=== PATIENT | female | born 1990 | race Hispanic/Latino ===

== ENCOUNTER 2017-12-21 13:00 | Emergency (ER) | payer OTHER ==
[2017-12-21 13:15] VITALS: BMI 27.7
--- NOTE | 2017-12-21 13:49 | OBHP ---
Datetime: 12/21/2017 13:33 IP Adm Impression: Term, intrauterine IP Admit Plan: Observation/Evaluation Admit Comment, IP Provider: 27 yo g1 edc [birth year] presents w/ c/o episode of lightheadedness associated w/ dizziness 3days ago while sitting at computer in work and this morning while cooking pancakes . S he states dizziness today was preceded by blurred va and follwoed by h/a and nausea. rates h/a 5/10 d oes not feel she needs to take a tylenol for it. denies emesis, ruq pain midepig, scotomata, decreas ed fm, ctxs, srom or vag bleeding. ob hx sig for polyhydram- had norml gst but was placd on ada diet this past wk and has not been fe eling well. last us on 12/15 edd 26. us on 12/11 efw 28% pmhx: asthma in childhhood pshx: denies nkda medic: pnv allerg: sulfa- pruritus i: 37.1wk h/a, blurred va p: cbc, msafp, cmp, ua Gestation - Est Wks by US: 37.1 IP Chief Complaint: Other
[2017-12-21 13:56] LABS: BASO % 0.3 % (0.0-2.0); EOS # 0.1 K/uL (0.0-0.7); EOS % 0.7 % (0.0-4.0); HEMOGLOBIN 11.8 g/dL (12.0-16.0); LYMPH % 19.5 % (20.0-40.0); MEAN CELL VOLUME 93.7 fl (81.0-99.0); MEAN CORPUSCULAR HEMOGLOBIN 31.7 pg (27.0-31.0); MEAN CORPUSCULAR HGB CONC 33.8 g/dL (33.0-37.0); MEAN PLATELET VOLUME 9.1 fl (7.2-11.7); MONO # 0.8 K/uL (0.0-0.8); MONO % 7.7 % (0.0-10.0); NEUT # 7.4 K/uL (1.8-7.0); NEUT % 71.8 % (50.0-75.0); NRBC % 0.1 % (0.0-0.0); RBC 3.71 Mil/uL (3.80-5.20); RED CELL DISTRIBUTION WIDTH 12.9 % (11.5-14.5); WHITE BLOOD COUNT 10.3 K/uL (4.8-10.8)
[2017-12-21 14:10] LABS: ALB/GLOB RATIO 1.1 (1.0-2.1); ALBUMIN 3.4 g/dL (3.5-5.0); ALT/SGPT 29 U/L (9-52); AST/SGOT 31 U/L (14-36); BLOOD UREA NITROGEN 6 mg/dl (7-17); CALCIUM 9.6 mg/dL (8.4-10.2); GFR AFRICAN-AMERICAN > 60; GFR NON-AFRICAN AMERICAN > 60
[2017-12-21 18:24] VITALS: BP 106/64; PULSE 70; O2SAT 99
== END 2017-12-21 14:24 | disposition home or self-care (01) ==
LOC: H.EROB2 13:00
DX: O26.93 Pregnancy related conditions, unspecified, third trimester (principal); R51 Headache; H53.8 Other visual disturbances; Z3A.37 37 weeks gestation of pregnancy

== ENCOUNTER 2017-12-30 20:55 | Inpatient (IN) | payer OTHER ==
[2017-12-30 21:31] VITALS: BMI 28.3
[2017-12-30 22:43] LABS: BASO # 0.1 K/uL (0.0-0.2); BASO % 0.5 % (0.0-2.0); EOS # 0.1 K/uL (0.0-0.7); EOS % 0.6 % (0.0-4.0); HEMOGLOBIN 12.1 g/dL (12.0-16.0); LYMPH % 18.7 % (20.0-40.0); MEAN CELL VOLUME 93.8 fl (81.0-99.0); MEAN CORPUSCULAR HEMOGLOBIN 31.9 pg (27.0-31.0); MEAN PLATELET VOLUME 9.1 fl (7.2-11.7); MONO # 0.7 K/uL (0.0-0.8); MONO % 6.4 % (0.0-10.0); NEUT # 7.9 K/uL (1.8-7.0); NEUT % 73.8 % (50.0-75.0); NRBC % 0.1 % (0.0-0.0); RBC 3.8 Mil/uL (3.80-5.20); RED CELL DISTRIBUTION WIDTH 13.3 % (11.5-14.5); WHITE BLOOD COUNT 10.8 K/uL (4.8-10.8)
[2017-12-31] MEDS ORDERED: Clindamycin 600 MG in Sodium Chloride 0.9% 100 ML IVPB ONE (01:00)
[2017-12-31] MEDS ORDERED: Nalbuphine 20 mg/ml Inj (1 ml) IVP PRN (01:15)
[2017-12-31] MEDS: Lactated Ringer's 1,000 ML IV SCH ×2 (01:21→10:04)
[2017-12-31] MEDS ORDERED: Oxytocin 30 units/LR 500ML 30 U/500 ML BAG IV ONE (10:45)
[2017-12-31] MEDS ORDERED: Fentanyl/Bupivacaine HCl 250 ML EPI ONE ×2 (12:49→13:00)
[2017-12-31] MEDS ORDERED: ePHEDrine 50 mg/ml Inj ONE (14:30)
[2017-12-31] MEDS ORDERED: Lidocaine 1% Inj (20ml) ONE (19:33)
[2017-12-31] MEDS ORDERED: Propofol 10 mg/ml Inj (20 ML) ONE (21:37)
[2017-12-31] MEDS ORDERED: Oxycodone/Acetaminophen 5/325 mg Tab PO PRN ×2 (22:27)
[2017-12-31] MEDS ORDERED: Gentamicin 80 mg/2mL Inj. IVPB SCH (22:30)
--- NOTE | 2017-12-31 23:15 | OBDS ---
DELIVERY PERSONNEL Delivery Doctor: Rojas Rojas MD Server Support Technician: Nida Vang RN, Cash Echavarria RN Anesthesiologist: Skyler Jean Baptiste MD MATERNAL INFORMATION Delivery Anesthesia: Local; Epidural Medications in Delivery: Pitocin Estimated Blood Loss (ml): 150 Placenta Cultured: No Maternal Complications: None Provider Comments: Delivered live baby girl at 2112 and was bulb suctioned on the perineum and trans ferred to the maternal chest. The cord was clamped and cut 3 vessels noted cord blood was obtained an d sent to the lab. The placenta was delivered at 2142 bimanual extraction. Patient was noted to have a succenturiate lobe. The estimated blood loss was 150 mL, there was a first-degree laceration was re paired with 2-0 Rapide. The mother tolerated the procedure well and the baby went to the [facility] with Apgars of 9 and 9 weighing 3180 g LABOR SUMMARY EDC: 01/09/2018 00:00 No. Babies in Womb: 1 Attempted: No Labor Anesthesia: Epidural LABOR INFORMATION Reason for Induction: Polyhydramnios Onset of Labor: 12/31/2017 15:37 Cervical Ripening Agents: Cervidil Oxytocin: Induction Group B Beta Strep: Negative Antibiotics # of Doses: 0 Antibiotics Time of Last Dose: n/a Steroids Given: None Reason Steroids Not Administered: Not Applicable MEMBRANES Membranes Rupture Method: Artificial Rupture of Membranes: 12/31/2017 10:25 Length of Rupture (hrs): 10.78 Amniotic Fluid Color: Clear Amniotic Fluid Amount: Moderate Amniotic Fluid Odor: Normal STAGES OF LABOR Stage 3 hrs: 0 Stage 3 min: 30 Total Time in Labor hrs: 6 Total Time in Labor min: 5 VAGINAL DELIVERY Episiotomy: None Laceration Extension: Second Degree Laceration Type: Perineal Laceration Repair: Yes Initial Vag Sponge Count: 15 Final Vag Sponge Count: 15 Initial Vag Sharps Count: 2 Final Vag Sharps Count: 2 Sponge Count Correct: Yes Sharps Count Correct: Yes Count Comment: sharps correct BABY A INFORMATION Infant Delivery Date/Time: 12/31/2017 21:12 Method of Delivery: Vaginal Born in Route : No : N/A Forceps: N/A Vacuum Extraction: N/A Shoulder Dystocia : No SHOULDER DYSTOCIA BABY A Infant Delivery Date/Time: 12/31/2017 21:12 PRESENTATION/POSITION BABY A Presentation: Cephalic PLACENTA INFORMATION BABY A Placenta Delivery Time : 12/31/2017 21:42 Placenta Method of Delivery: Manual Removal Placenta Status: Delivered SCORES BABY A Heart Rate 1 min: >100 bpm Resp Effort 1 min: Good Cry Reflex Irritability 1 min: Cough or Sneeze or Pulls Away Muscle Tone 1 min: Active Motion Color 1 min: Body Horse Shoe, Extremities Blue Resuscitation Effort 1 min: Tactile Stimulation SCORE 1 MIN: 9 Heart Rate 5 min: >100 bpm Resp Effort 5 min: Good Cry Reflex Irritability 5 min: Cough or Sneeze or Pulls Away Muscle Tone 5 min: Active Motion Color 5 min: Body Horse Shoe, Extremities Blue Resuscitation Effort 5 min: N/A SCORE 5 MIN: 9 INFORMATION BABY A Gestational Age at Delivery: 39.3 Gestational Status: Term Outcome : Liveborn Condition : Stable Infant Sex: Female IDENTIFICATION/MEDS BABY A ID Band Number: [id number] ID Band Location: Left Leg; Left Arm WEIGHT/LENGTH BABY A Infant Birthweight (gms): 3180 Weight (lb): 7 Infant Weight (oz): 0 CORD INFORMATION BABY A Infant Suction: Mouth; Nose ASSESSMENT BABY A Complications: None Physical Findings at Delivery: Caput Succedaneum Respirations: Appears Normal Mine Motor Operator/ALS Called : No Care By: Derick/Dr Groves Transferred To: Remains with Mother
[2018-01-01] MEDS ORDERED: Oxycodone/Acetaminophen 5/325 mg Tab PO PRN ×2 (00:10)
[2018-01-01] MEDS ORDERED: Clindamycin 600 MG in Sodium Chloride 0.9% 100 ML IVPB ONE (01:00)
[2018-01-01] MEDS ORDERED: Clindamycin 300 mg/2 ml Inj IVPB SCH (01:00)
[2018-01-01 06:31] LABS: HEMOGLOBIN 9.4 g/dL (12.0-16.0); MEAN CELL VOLUME 93.7 fl (81.0-99.0); MEAN CORPUSCULAR HEMOGLOBIN 32.3 pg (27.0-31.0); MEAN CORPUSCULAR HGB CONC 34.5 g/dL (33.0-37.0); RBC 2.91 Mil/uL (3.80-5.20); RED CELL DISTRIBUTION WIDTH 13.2 % (11.5-14.5); WHITE BLOOD COUNT 17.4 K/uL (4.8-10.8)
--- NOTE | 2018-01-01 15:26 | US ---
HISTORY: history of succenturiate lobe Relevant surgical history: Manual distraction of placenta at 02:14 18. COMPARISON: None available. TECHNIQUE: Transabdominal only. Real-time technique with 2D, duplex and color Doppler FINDINGS: UTERUS: Measures 14.4 x 9.7 x 22.6 cm. Findings consistent with immediate state. Markedly heterogeneous and hypervascular uterus. ENDOMETRIUM: Measures 12.7 mm in diameter. No ultrasound findings to suggest gestational sac, fluid, debris, mass or polyp or other pathologic process within the endometrium. Specifically, no visible retained products of conception. CERVIX: No cervical abnormality identified. RIGHT OVARY: Not visualized LEFT OVARY: Not visualized FREE FLUID: No significant free fluid noted. OTHER FINDINGS: None. IMPRESSION: Enlarged hypervascular heterogeneous uterus consistent with immediate state. No visible retained products of conception. Limitations of the current study: The adnexa are not visualized
--- NOTE | 2018-01-02 11:08 | OBPPN ---
Datetime: 01/02/2018 11:05 PP Pain Prov: Within normal limits PP Nausea Prov: Denies PP Flatus Prov: Yes PP Breasts Prov: Not Done PP Heart Prov: Normal PP Lungs Prov: Normal PP Abdomen/Uterus Prov: Normal PP Lochia Prov: Not Done PP Vulva/Perineum Prov: Not Done PP CVA Tenderness Prov: Normal PP Extremities Prov: Normal PP Progress Prov: Normal PP Impression Prov: Normal progression PP Progress Note Prov: The patient very well ambulating tolerating diet reports minimal lochia Vital signs stable afebrile Uterus firm below the umbilicus Extremities no Homans day #2 Patient cleared for discharge, follow-up with PND, nothing per vagina, Motrin as needed Vital Signs Provider PP: Reviewed Datetime: 01/01/2018 11:05 PP Comments Phys Exam Prov: Uter firm below umb No DCT bilaterally PP Plan Prov: Continue present management IP PP Procedures: None
--- NOTE | 2018-01-02 11:08 | OBDCSUM ---
Datetime: 01/02/2018 10:13 Discharged to, Provider: Home Follow up at, Provider: [employer] [facility] Disch Instr Activity: May Shower Disch Instr Diet: Regular Discharge Instructions, Provider: Routine instructions given Discharge Diagnosis, Provider: Term Delivered Discharge Time: 01/02/2018 12:00 Follow up in weeks, Provider: 4-6 weeks Disch Referrals: None Contraception discussed, Prov: Yes Disch Activity Restrictions: No exercising; No lifting; No sexual activity; Nothing in vagina - Inte rcourse, tampons, douche Discharge Comment, Provider: Cleared for discharge Contraception after Delivery: Undecided
[2018-01-02 18:31] VITALS: BP 113/75; PULSE 89; RESP 20; TEMP 98.9; O2SAT 100
== END 2018-01-02 12:30 | disposition home or self-care (01) | DRG 775 ==
LOC: H.EROB2 20:55 → H.L&D 21:59 → H.OB/GYN 12-31 00:50
PROVIDERS: ADMIT Obstetrics & Gynecology; ATTEND Obstetrics & Gynecology
PROC: 10E0XZZ Delivery of Products of Conception, External Approach (ICD-10-PCS; principal; 2017-12-30)
PROC: 0KQM0ZZ Repair Perineum Muscle, Open Approach (ICD-10-PCS; 2017-12-30)
PROC: 4A1HXCZ Monitoring of Products of Conception, Cardiac Rate, External Approach (ICD-10-PCS; 2017-12-30)
DX: O40.3XX0 Polyhydramnios, third trimester, not applicable or unspecified (principal); O70.1 Second degree perineal laceration during delivery; Z37.0 Single live birth; Z3A.39 39 weeks gestation of pregnancy